=== PATIENT | male | born 1950 | race Caucasian/White ===

== ENCOUNTER → 2016-12-27 | Outpatient (CLI) | payer OTHER, MEDICARE | LOC: FIMAGING 14:18 | PROVIDERS: ATTEND Family Medicine | DX: R91.1 Solitary pulmonary nodule (principal); Z87.891 Personal history of nicotine dependence ==

== ENCOUNTER 2017-03-10 11:05 | Observation (INO) | payer OTHER, MEDICARE ==
[2017-03-10] MEDS ORDERED: IOPAMIDOL (ISOVUE-300) 100 ML BTL ONE (11:46)
--- NOTE | 2017-03-10 11:55 | EDPHY ---
H & P Stated Complaint: s/p colonoscopy pain Time Seen by Provider: 03/10/17 11:11 HPI/ROS: CHIEF COMPLAINT: Left-sided abdominal pain following colonoscopy HISTORY OF PRESENT ILLNESS: The patient is referred to the emergency department from the GI suite after the patient developed acute severe left- sided abdominal pain after colonoscopy. 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 The patient did have a somewhat tortuous colon. There were no biopsies performed. The patient reportedly had symptoms of diaphoresis and rigors. In the ED, the patient states his pain has started to improve. The patient is passing gas. The patient currently rates his pain as a 2/10. The patient denies additional acute complaints. REVIEW OF SYSTEMS: A comprehensive 10 point review of systems is otherwise negative aside from elements mentioned in the history of present illness. Source: Patient Exam Limitations: No limitations - Personal History Current Tetanus/Diphtheria Vaccine: Unsure Current Tetanus Diphtheria and Acellular Pertussis (TDAP): Unsure - Medical/Surgical History Hx Asthma: No Hx Chronic Respiratory Disease: No Hx Diabetes: No Hx Cardiac Disease: No Hx Renal Disease: No Hx Cirrhosis: No Hx Alcoholism: No Hx HIV/AIDS: No Hx Splenectomy or Spleen Trauma: No - Social History Smoking Status: Never smoked - Physical Exam Exam: General Appearance: Alert, no distress Eyes: Pupils equal and round no pallor or injection ENT, Mouth: Mucous membranes moist Respiratory: There are no retractions, lungs are clear to auscultation Cardiovascular: Regular rate and rhythm Gastrointestinal: Minimal tenderness to palpation left upper quadrant, normal bowel sounds Neurological: A&O, normal motor function, normal sensory exam, normal cranial nerves Skin: Warm and dry, no rashes Musculoskeletal: Neck is supple nontender Extremities: symmetrical, full range of motion Constitutional: Initial Vital Signs Temperature (C) 36.3 C 03/10/17 11:11 Heart Rate 45 L 03/10/17 11:11 Respiratory Rate 16 03/10/17 11:11 Blood Pressure 128/75 H 03/10/17 11:11 O2 Sat (%) 100 03/10/17 11:11 O2 Delivery Mode Room Air Allergies/Adverse Reactions: No Known Allergies Allergy (Unverified 03/10/17 11:13) Home Medications: Medication Instructions Recorded Acetaminophen [Tylenol 325mg (*)] 325 mg PO DAILY PRN 03/10/17 Mcclusky-3 Fatty Acids [Fish Oil 1000 1,000 mg PO DAILY 03/10/17 mg (*)] Tamsulosin HCl [Flomax 0.4 MG (*)] 0.4 mg PO HS 03/10/17 Medical Decision Making - Diagnostics Imaging Results: Imaging Impressions Abdomen CT 03/10/17 11:37 Impression: 1. Small to moderate volume of hemoperitoneum with no free air and no visible source for the bleeding. 2. Sigmoid diverticulosis without evidence of diverticulitis. 3. Nonobstructing right nephrolithiasis. 4. Additional findings as above. Findings discussed with Dr. Thang Vasquez on 03/10/2017 at 1245 hours. ED Course/Re-evaluation: The patient had an IV established. He received a L of normal saline. Given his abdominal tenderness following a colonoscopy, a CT scan of the abdomen pelvis was ordered to exclude evidence of perforation. CT scan of the abdomen pelvis demonstrates evidence of hemoperitoneum without obvious source of bleeding. I consulted with Dr. Brunner from General surgery at 1:30 p.m.. He recommends admission to the hospitalist and serial hematocrits. He will consult on the patient as needed. No indication for operative intervention at this point time. Patient is currently hemodynamically stable with an initial hematocrit which is normal. Dr. Shantanu Ventura from Gastroenterology has been notified of the patient's workup. Consultation is made with the hospitalist service. The patient will be admitted for observation by Dr. Alegre. I re-evaluated the patient at 1:30 p.m.. He is comfortable, hemodynamically stable and in no acute distress. Differential Diagnosis: Differential diagnosis considered includes perforation, obstruction, ileus, diverticulitis - Data Points Laboratory Results: Laboratory Results 03/10/17 11:19 03/10/17 11:19 03/10/17 03/10/17 03/10/17 11:19 11:19 11:19 WBC 12.11 10^3/uL H 10^3/uL (3.80-9.50) RBC 5.04 10^6/uL 10^6/uL (4.40-6.38) Hgb 15.6 g/dL g/dL (13.7-17.5) POC Hgb Hct 43.9 % % (40.0-51.0) POC Hct MCV 87.1 fL fL (81.5-99.8) MCH 31.0 pg pg (27.9-34.1) MCHC 35.5 g/dL g/dL (32.4-36.7) RDW 12.5 % % (11.5-15.2) Plt Count 194 10^3/uL 10^3/uL (150-400) MPV 10.1 fL fL (8.7-11.7) Neut % (Auto) 86.7 % H % (39.3-74.2) Lymph % (Auto) 6.9 % L % (15.0-45.0) [place] % (Auto) 5.2 % % (4.5-13.0) Eos % (Auto) 0.3 % L % (0.6-7.6) Baso % (Auto) 0.4 % % (0.3-1.7) Nucleat RBC Rel Count 0.0 % % (0.0-0.2) Absolute Neuts (auto) 10.50 10^3/uL H 10^3/uL (1.70-6.50) Absolute Lymphs (auto) 0.83 10^3/uL L 10^3/uL (1.00-3.00) Absolute Monos (auto) 0.63 10^3/uL 10^3/uL (0.30-0.80) Absolute Eos (auto) 0.04 10^3/uL 10^3/uL (0.03-0.40) Absolute Basos (auto) 0.05 10^3/uL 10^3/uL (0.02-0.10) Absolute Nucleated RBC 0.00 10^3/uL 10^3/uL (0-0.01) Immature Gran % 0.5 % % (0.0-1.1) Immature Gran # 0.06 10^3/uL 10^3/uL (0.00-0.10) PT 14.5 SEC SEC (12.0-15.0) INR 1.14 (0.83-1.16) APTT 23.4 SEC SEC (23.0-38.0) POC Sodium Sodium 142 mEq/L mEq/L (134-144) POC Potassium Potassium 5.5 mEq/L H mEq/L (3.5-5.2) POC Chloride Chloride 110 mEq/L mEq/L (97-110) Carbon Dioxide 19 mEq/l L mEq/l (22-31) Anion Gap 13 mEq/L mEq/L (8-16) POC BUN BUN 18 mg/dL mg/dL (7-23) Creatinine 1.0 mg/dL mg/dL (0.7-1.3) POC Creatinine Estimated GFR > 60 Glucose 99 mg/dL mg/dL (70-100) POC Glucose Calcium 9.0 mg/dL mg/dL (8.5-10.4) 03/10/17 11:15 WBC RBC Hgb POC Hgb 15.6 gm/dL gm/dL (13.7-17.5) Hct POC Hct 46 % % (40-51) MCV MCH MCHC RDW Plt Count MPV Neut % (Auto) Lymph % (Auto) [place] % (Auto) Eos % (Auto) Baso % (Auto) Nucleat RBC Rel Count Absolute Neuts (auto) Absolute Lymphs (auto) Absolute Monos (auto) Absolute Eos (auto) Absolute Basos (auto) Absolute Nucleated RBC Immature Gran % Immature Gran # PT INR APTT POC Sodium 143 mEq/L mEq/L (134-144) Sodium POC Potassium 4.9 mEq/L mEq/L (3.3-5.0) Potassium POC Chloride 107 mEq/L mEq/L (97-110) Chloride Carbon Dioxide Anion Gap POC BUN 21 mg/dL mg/dL (7-23) BUN Creatinine POC Creatinine 1.0 mg/dL mg/dL (0.7-1.3) Estimated GFR Glucose POC Glucose 104 mg/dL H mg/dL (70-100) Calcium Point of Care Test Results: 03/10/17 11:15 POC Sodium 143 POC Potassium 4.9 POC Chloride 107 POC BUN 21 POC Creatinine 1.0 POC Glucose 104 H Departure - Departure Disposition: [facility] Inpatient Acute Clinical Impression: Acute abdominal pain, Traumatic hemoperitoneum Condition: Good
[2017-03-10 13:36] LABS: APTT 23.4 SEC (23.0-38.0); INR 1.14 (0.83-1.16); PROTIME(PATIENT) 14.5 SEC (12.0-15.0)
[2017-03-10 13:37] LABS: % IMMATURE GRANULYOCYTES 0.5 % (0.0-1.1); ABSOLUTE IMMATURE GRANULOCYTES 0.06 10^3/uL (0.00-0.10); ADD DIFF? NO; ADD MORPH? NO; ADD SCAN? NO; ATYPICAL LYMPHOCYTE FLAG 0 (0-99); FRAGMENT RBC FLAG 0 (0-99); HEMATOCRIT 43.9 % (40.0-51.0); HEMOGLOBIN 15.6 g/dL (13.7-17.5); LEFT SHIFT FLG 70 (0-99); LIPEMIA HEMOLYSIS FLAG 90 (0-99); MEAN CELL HEMOGLOBIN CONCENTR. 35.5 g/dL (32.4-36.7); MEAN CELL VOLUME 87.1 fL (81.5-99.8); MEAN PLATELET VOLUME 10.1 fL (8.7-11.7); PLATELET CLUMPS FLAG 0 (0-99); PLATELET COUNT 194 10^3/uL (150-400); RED BLOOD CELL COUNT 5.04 10^6/uL (4.40-6.38); RED CELL DISTRIBUTION WIDTH 12.5 % (11.5-15.2)
[2017-03-10 13:38] LABS: ANION GAP 13 mEq/L (8-16); CARBON DIOXIDE 19 mEq/l (22-31); CHLORIDE 110 mEq/L (97-110); GLOMERULAR FILTRATION RATE > 60; GLUCOSE 99 mg/dL (70-100); POTASSIUM 5.5 mEq/L (3.5-5.2); SODIUM 142 mEq/L (134-144)
[2017-03-10] MEDS ORDERED: ACETAMINOPHEN 325 MG TAB PO PRN (13:51)
[2017-03-10] MEDS ORDERED: NS 1,000 ML IV ONE (13:51)
[2017-03-10] MEDS ORDERED: ONDANSETRON DISINTEGRATING 4 MG TAB PO PRN (13:51)
[2017-03-10] MEDS ORDERED: ONDANSETRON 4 MG/2 ML VIAL IVP PRN (13:51)
--- NOTE | 2017-03-10 16:15 | SOAPPROG ---
SOAP Progress Note Assessment/Plan: Assessment:Plan: 1) abnml CT with some blood in peritoneum s/p colon today, no free air. reviewed with radiology and they don't feel that it is splenic lac but could be. Maybe small blood vessels broken from torsion of scope as a difficult torturous colon 2) abdo pain form above, mild improved over last few hours 3) dispo - if Hb stable tomorrow and OK with surgery then prob home 03/10/17 16:16 Subjective: cc- abmml CT s/p colon mild lower abdo pain, he wants to go for a walk after eating some food Objective: Vital Signs Temp Pulse Resp BP Pulse Ox 36.7 C 67 16 107/62 97 03/10/17 15:26 03/10/17 15:26 03/10/17 12:16 03/10/17 15:26 03/10/17 15:26 PT 14.5 SEC (12.0-15.0) 03/10/17 11:19 INR 1.14 (0.83-1.16) 03/10/17 11:19 A+Ox3 CTA S1S2, RRR +BS, decreased but nml pitch, soft mild tenderness lower quads Laboratory Tests 12/26/16 12/26/16 03/10/17 08:28 08:28 11:19 WBC 12.11 H Hgb 16.4 15.6 Hct 47.1 43.9 Plt Count 194 PT INR APTT Hepatitis C Antibody NEGATIVE 03/10/17 11:19 WBC Hgb Hct Plt Count PT 14.5 INR 1.14 APTT 23.4 Hepatitis C Antibody ICD10 Worksheet Patient Problems: Problems Problem Status Onset Acute abdominal pain Acute Traumatic hemoperitoneum Acute
--- NOTE | 2017-03-10 16:36 | SOAPPROG ---
[place] Progress Note Assessment/Plan: Assessment: 66-year-old male with the possible hemoperitoneum and abdominal pain after colonoscopy earlier today He is admitted for observation CT scan revealed a small to moderate pelvic hemoperitoneum with small amount of blood around the spleen Currently is not complain of any significant pain/ his vital signs are stable/ he is afebrile Abdomen is soft nontender with positive bowel sounds are no hernias Chest is clear to auscultation percussion and cardiac exam is negative Plan: Observation/serial hematocrit/check coags/home in the morning 03/10/17 16:34 Objective: Vital Signs Temp Pulse Resp BP Pulse Ox 36.7 C 67 16 107/62 97 03/10/17 15:26 03/10/17 15:26 03/10/17 12:16 03/10/17 15:26 03/10/17 15:26 PT 14.5 SEC (12.0-15.0) 03/10/17 11:19 INR 1.14 (0.83-1.16) 03/10/17 11:19 ICD10 Worksheet Patient Problems: Problems Problem Status Onset Acute abdominal pain Acute Traumatic hemoperitoneum Acute
[2017-03-10 18:40] LABS: HEMATOCRIT 39.8 % (40.0-51.0)
--- NOTE | 2017-03-10 19:54 | GHP ---
[f rep st] HISTORY AND PHYSICAL DATE OF ADMISSION: 03/10/2017 CHIEF COMPLAINT: Abdominal pain. HISTORY OF PRESENT ILLNESS: A 66-year-old male who presents after colonoscopy with severe abdominal pain. Patient reports pain beginning soon after his procedure. [facility] He did not have any stools after the procedure or any episodes of nausea and vomiting. He did have some improvement in his symptoms during his stay in the emergency departm ent. During my evaluation, the pain has dramatically subsided. He is no longer having any nausea, chills, or rigors. Denies any chest pain, denies shortness of breath. Denies dizziness, subjective fevers, chills, headache, diarrhea, dysuria, lower extremity edema, or rashes. He is feeling very hungry, as he has not eaten solid food since preprep for colonoscopy. PAST MEDICAL HISTORY,: Reported intermittent cardiac palpitations. FAMILY HISTORY: Colon cancer, he believes, in his father. SOCIAL HISTORY: Negative for tobacco, which he quit in the 1970s. Daily alcohol up to a glass-and- a-half of wine. Marijuana frequently. No illicit drugs. REVIEW OF SYSTEMS: Ten-point review of systems is negative with the exception of that reported in t he HPI. PHYSICAL EXAMINATION: VITAL SIGNS: Blood pressure 115/75, heart rate 59, respiratory rate 19, 99% on room air, 36.7. GENERAL: This is a healthy-appearing middle-aged male in no acute distress. HE ENT: Notable for dry mucous membranes. Eye exam is negative for any icterus. CARDIAC: Patient is regular rate and rhythm. PULMONARY: Clear to auscultation bilaterally. GASTROINTESTINAL: Positi ve bowel sounds. The abdomen is soft, minimally tender with no rebound or guarding. MUSCULOSKELETA L: Negative for any lower extremity edema. SKIN: Negative for any rashes. NEUROLOGIC: He is joe rt and oriented x3. PSYCHIATRIC: He is pleasant and cooperative on interview and examination. DATA: White count is 12, hematocrit is 43.9, hemoglobin of 15, platelet count of 194. CT of the abdomen, which I personally reviewed and interpreted, shows blood in the peritoneal cavity , sigmoid diverticulosis with no diverticulitis. ASSESSMENT AND PLAN: This is a 66-year-old male status post colonoscopy with abdominal pain. 1. Acute hemoperitoneum. After discussion with both Gastroenterology and Surgery, suspect very lik mindi that the patient simply had some minor bleeding from his colonoscopy, and there is no, in fact, perforation or damage to his spleen, and that likely much of the pain he had was from air expansion during this procedure. Patient will be monitored overnight with serial hemoglobin and hematocrit. If these remain stable, will discharge in the morning. 2. Cardiac dysrhythmia/palpitations. The patient reports these symptoms intermittently. He is hem odynamically stable on my examination. We will not place him on telemetry this evening, as it is no t indicated. 3. Prophylaxis. Heparin is contraindicated in the setting of acute hemoperitoneum. 4. Diet regular. 5. Disposition. I expect less than 2 midnights, if the patient remains stable from a hemoglobin an d hematocrit standpoint and hemodynamically stable. I have discussed the case with both General Surgery and Gastroenterology. We will monitor the patie nt closely overnight. /[id number]/MODL
[2017-03-10] MEDS ORDERED: TAMSULOSIN HCL 0.4 MG CAP PO SCH (21:00)
--- NOTE | 2017-03-10 22:36 | GCON ---
[f rep st] CONSULTATION DATE OF CONSULTATION: 03/10/2017 HISTORY OF PRESENT ILLNESS: The patient is a 66-year-old male, who underwent colonoscopy this morning and came to the ER with significant abdominal pain post procedure. Pain is largely resolved with some flatus passing. He did have a CT scan, which reveals small hemoperitoneum with no obvious definite source, although there is some blood around the end of the spleen. Vital signs have been stable, and his hematocrit was adequate at 44. He is admitted at this time for observation. REVIEW OF SYSTEMS: Full 10-point review of systems reveals no major medical issues other than those listed in the past history and the present illness.hx of intermittent heart palpitations SOCIAL HISTORY: He is a nonsmoker. PAST MEDICAL HISTORY: Reveals no major surgeries or major hospitalizations. ALLERGIES: None. MEDICATIONS: Include Flomax and Tylenol. PHYSICAL EXAMINATION: GENERAL: An alert 66-year-old male, in no acute distress. HEAD/NECK: No icterus or adenopathy. Pupils are normal. Neck is supple. No oral lesions. CHEST: Clear and symmetric. CARDIAC: Regular rate and rhythm. ABDOMEN: Soft, nondistended. Minimally tender in the left upper quadrant and in the suprapubic area. Positive bowel sounds. No hernias and no obvious scars. GENITALIA: Normal. EXTREMITIES: Reveal full range of motion and full pulses. NEUROLOGIC: Physiologic. IMPRESSION: Possible small splenic laceration as the source for pain and intraabdominal hemorrhage, although his pain seemed to be focused lower, more like gas pains. RECOMMENDATIONS: Would be observation with serial hematocrits and coags checked. Probably home in a.m. if stable. /[id number]/MODL MTDD
[2017-03-11 05:21] LABS: % IMMATURE GRANULYOCYTES 0.3 % (0.0-1.1); ABSOLUTE IMMATURE GRANULOCYTES 0.02 10^3/uL (0.00-0.10); ADD DIFF? NO; ADD MORPH? NO; ADD SCAN? NO; ATYPICAL LYMPHOCYTE FLAG 0 (0-99); FRAGMENT RBC FLAG 0 (0-99); HEMATOCRIT 39.4 % (40.0-51.0); HEMOGLOBIN 13.4 g/dL (13.7-17.5); LEFT SHIFT FLG 10 (0-99); LIPEMIA HEMOLYSIS FLAG 90 (0-99); MEAN CELL HEMOGLOBIN 30.7 pg (27.9-34.1); MEAN CELL VOLUME 90.2 fL (81.5-99.8); MEAN PLATELET VOLUME 9.8 fL (8.7-11.7); PLATELET CLUMPS FLAG 10 (0-99); PLATELET COUNT 167 10^3/uL (150-400); RED BLOOD CELL COUNT 4.37 10^6/uL (4.40-6.38); RED CELL DISTRIBUTION WIDTH 12.4 % (11.5-15.2)
[2017-03-11 08:06] VITALS: BP 99/60; PULSE 55; RESP 16; TEMP 98.7; O2SAT 95
[2017-03-11] MEDS ORDERED: OMEGA-3 FATTY ACIDS 1,000 MG CAP PO SCH (09:00)
--- NOTE | 2017-03-12 11:44 | GDS ---
[f rep st] DISCHARGE SUMMARY DISCHARGE DIAGNOSES: 1. Acute hemoperitoneum. 2. Acute abdominal pain thought secondary to air distention from colonoscopy. HISTORY OF PRESENT ILLNESS: A 66-year-old male who presents with acute left-sided abdominal pain af ter colonoscopy. For details of patient's initial presentation, please see the history and physical , dated 03/10/2017. CONSULTATIVE SERVICES: Include General Surgery, Gastroenterology. PROCEDURES: 03/10/2017, patient had a CT of the abdomen that showed small to moderate volume hemoper itoneum with no free air. HOSPITAL COURSE BY ISSUE: Acute hemoperitoneum. Images and patient were seen by both General Surge ry, Gastroenterology. Radiology felt, by re-review of the imaging, that likely the patient had mild bleeding from extending the outer surface of the bowel during colonoscopy. There were no signs of perforation or damage to the spleen or surrounding organs. Patient had his H and H monitored overni ght, which remained stable. After fluid resuscitation, he had no recurrence of pain, no bloody stoo ls, and was tolerating regular diet. He will be discharged to follow in the outpatient setting with Dr. Ventura in the next 2 to 4 weeks. MEDICATIONS AT DISPOSITION: Please reference Med Rec printed on 03/11/2017. PENDING STUDIES AT TIME OF DICTATION: None. /[id number]/MODL
== END 2017-03-11 10:19 | disposition home or self-care (01) ==
LOC: INTOOBSV 12:50 → F3E 15:20
PROVIDERS: ADMIT Hospitalist; ATTEND Hospitalist
DX: S36.81XA Injury of peritoneum, initial encounter (principal); R10.9 Unspecified abdominal pain; K91.89 Other postprocedural complications and disorders of digestive system; I49.9 Cardiac arrhythmia, unspecified; Y69 Unspecified misadventure during surgical and medical care
CPT/HCPCS: 74177; G0378; Q9967; 82947-QW